=== PATIENT | male | born 1980 | race Caucasian/White ===

== ENCOUNTER 2016-10-30 11:16 | Observation (INO) ==
--- NOTE | 2016-10-30 11:45 | Emergency Department Note ---
Disposition Clinical Impression: Uncontrolled diabetes mellitus Qualifiers: Diabetes mellitus type: type 1 Diabetes mellitus complication status: with ketoacidosis Diabetes mellitus complication detail: without coma Qualified Code( s): E10.10 - Type 1 diabetes mellitus with ketoacidosis without coma Disposition: Admitted As Inpatient Condition: Good Referrals: Jessica Casey FIXED INCOME PORTFOLIO MANAGER [Advanced Practice Nurse] - Forms: ED Satisfaction Letter Time of Disposition: 13:03 Chest Pain HPI - General Chief Complaint: ED Chest Pain Stated Complaint: Chest Pain Time Seen by Provider: 10/30/16 11:18 Source: patient Limitations: no limitations Vital Signs Reviewed: Yes Nursing Notes Reviewed: Yes - History of Present Illness HPI Narrative: 36 year old male with HX of intermittment chest pain for over one week and woek up this moring with increased midsternal chest pressure assocaited iwth nausea, shortness of breath, and diaphoresis. Risk factors include: DM, HTN, (+) familly HX, hypercholesteremia. (-) smoker. Patient states he has a stress test and echo scheduled next month. No history of CAD or previous ID/stroke. Patinet states that he now has dyspnea at rest but on the monitors he is 100% on RA. Patinet states the midsternal chest pressure radiates into this arm/neck/face. Severity scale (1-10): 5 - Related Data Home Medications Medication Instructions Recorded Confirmed Allopurinol [Zyloprim 100 MG] 100 mg PO DAILY 10/30/16 10/30/16 Amlodipine Besylate/Benazepril 1 cap PO DAILY 10/30/16 10/30/16 [Lotrel 10-20 mg Capsule] Ascorbate Calcium [Vitamin C] 500 mg PO DAILY 10/30/16 10/30/16 Cholecalciferol (D-3) [Vitamin D] 2,000 unit PO DAILY 10/30/16 10/30/16 Gabapentin [Neurontin] 300 mg PO HS 10/30/16 10/30/16 Insulin Glargine,Hum.rec.anlog 22 units SQ HS 10/30/16 10/30/16 [Joanne Hurst] Insulin LISPRO [Humalog Kwikpen 0 unit SQ TID MDD PER SLIDING SCALE 10/30/16 U-100] Nitroglycerin [Nitrostat] 0.4 mg SL AD PRN 10/30/16 10/30/16 [place]-3/Dha/Epa/Fish Oil [Fish Oil 2,000 mg PO BID 10/30/16 10/30/16 1,000 mg Softgel] Simvastatin [Zocor] 20 mg PO HS 10/30/16 10/30/16 Allergies Allergy/AdvReac Type Severity Reaction Status Date / Time NSAIDS (Non-Steroidal AdvReac See Verified 10/30/16 11:19 Anti-Inflamma Comments Constitutional: Denies: fever, chills, weakness, weight change Eyes: Denies: eye pain, eye discharge, vision change ENT ED: Denies: ear pain, throat pain, dental pain, hearing loss, epistaxis, congestion, dysphagia Cardiovascular: Reports: chest pain, palpitations, dyspnea on exertion. Denies : edema, syncope Respiratory: Denies: cough, dyspnea, wheezes, hemoptysis, stridor Gastrointestinal: Denies: abdominal pain, nausea, vomiting, diarrhea, constipation, hematemesis, melena, hematochezia Genitourinary: Denies: urgency, dysuria, frequency, hematuria Musculoskeletal: Denies: back pain, neck pain, arthralgia, myalgia Integumentary: Denies: rash, abrasion, lesions Neurological: Denies: headache, weakness, numbness, paresthesias, confusion, abnormal gait, vertigo Psychiatric: Denies: anxiety, depression, suicidal thoughts, homicidal thoughts , auditory hallucinations, visual hallucinations Endocrine: Denies: fatigue Hematological/Lymphatic: Denies: easy bleeding, easy bruising Allergic/Immunologic: Denies: facial swelling, urticaria Chest Pain PMH - Past Medical History Medical history: Reports: arthritis, diabetes, hyperlipidemia, renal disease Psychiatric history: Reports: depression - Social History Smoking Status: Former smoker Alcohol use: Reports: occasionally Drug use: Reports: none Physical Exam - General Limitations: no limitations General appearance: alert, other (poor hygiene) - Head Head exam: atraumatic, normocephalic, normal inspection - Eye Eye exam: Present: normal appearance, PERRL, EOMI - Expanded Eye Exam Pupils: Left: reactive - ENT ENT exam: normal exam, normal oropharynx, mucous membranes moist - Expanded ENT Exam External ear exam: Present: normal external inspection Mouth exam: Present: normal external inspection Teeth exam: Present: normal inspection Throat exam: Present: normal inspection - Neck Neck exam: Present: normal inspection, full ROM, trachea midline - Chest Chest inspection: Present: normal inspection, symmetric chest wall rise - Respiratory Respiratory exam: Present: normal lung sounds bilaterally - Cardiovascular Cardiovascular exam: Present: normal rhythm, tachycardia, normal heart sounds - Abdominal Exam Abdominal exam: Present: soft, Non-Tender. Absent: tenderness, distention, guarding, rebound, rigidity - Extremities Exam Extremities exam: Present: normal inspection, full ROM. Absent: tenderness, pedal edema - Expanded Upper Extremity Exam Shoulder exam: Present: normal inspection, full ROM Arm exam: Present: normal inspection, full ROM Elbow exam: Present: normal inspection, full ROM Forearm/Wrist exam: Present: normal inspection, full ROM Hand exam: Present: normal inspection, full ROM Vascular exam: Normal: capillary refill, radial pulse - Expanded Lower Extremity Exam Hip/Pelvis exam: Present: normal inspection, full ROM Upper leg exam: Present: normal inspection, full ROM Knee exam: Present: normal inspection, full ROM Lower leg exam: Present: normal inspection, full ROM Ankle exam: Present: normal inspection, full ROM Foot/toe exam: Present: normal inspection, full ROM Neurovascular/Tendon exam: Absent: motor deficit, sensory deficit, tendon deficit - Back Exam Back exam: Present: normal inspection, full ROM. Absent: tenderness - Neurological Exam Neurological exam: Present: alert, oriented X3 - Expanded Neurological Exam Patient oriented to: Present: person, place, time Coma Scale Eye Opening: Spontaneous Coma Scale Motor Response: Obeys Commands Coma Scale Verbal Response: Oriented Coma Scale Total: 15 - Psychiatric Psychiatric exam: Present: normal affect, normal mood - Skin Skin exam: Present: warm, dry, intact, normal color Course Course Narrative: we will do a chest pain workup on elan. He states he took two nitro at home and is gave him relief. Patient does not PERC out, and he has Wells criteria of 1. WE will do a D-dimer to r/o PE. Labetolol for management of his HTN. - Reevaluation(s) Reevaluation #1: updated patient on results. Elan is agreeable to admission. Time: 12:30 - Consultations Consultation #1: discused case with Dr. Tim and she accepts patient to service Time: 13:02 Vital Signs Temperature 98.7 F 10/30/16 11:19 Pulse Rate 105 10/30/16 11:19 Respiratory Rate 18 10/30/16 11:19 Blood Pressure 174/123 10/30/16 11:19 O2 Sat by Pulse Oximetry 100 10/30/16 11:19 Temperature 98.7 F 10/30/16 11:19 Pulse Rate 92 10/30/16 12:59 Respiratory Rate 16 10/30/16 12:59 Blood Pressure 106/89 10/30/16 12:59 O2 Sat by Pulse Oximetry 100 10/30/16 12:59 Oxygen Delivery Oxygen Delivery Room Air Chest Pain - Lab Data Result diagrams: 10/30/16 11:46 10/30/16 11:46 Lab Results 10/30/16 10/30/16 10/30/16 Range/Units 11:46 11:46 11:46 WBC 7.8 (4.3-11.1) K/mcL RBC 5.21 (4.19-5.50) M/mcL Hgb 14.3 (12.9-16.9) g/dL Hct 39.9 (37.5-50.1) % MCV 76.6 L (83.0-100.0) fL MCH 27.4 L (28.0-33.3) pg MCHC 35.8 H (31.6-35.5) g/dL RDW 12.5 (11.5-14.5) % Plt Count 224 (140-400) K/mcL MPV 10.5 (9.4-12.4) fL Immature Gran % 0.1 (0-4) % Seg Neutrophils % 73.0 % Lymphocytes % 21.4 % Monocytes % 4.6 % Eosinophils % 0.0 % Basophils % 0.9 % Neutrophils # 5.7 (1.6-8.9) K/mcL Lymphocytes # 1.7 (0.6-4.6) K/mcL Monocytes # 0.4 (0.0-1.3) K/mcL Eosinophils # 0.0 (0.0-0.6) K/mcL Basophils # 0.1 (0.0-0.2) K/mcL PT 11.1 (9.4-12.1) Seconds INR 1.0 APTT 30.3 (26.0-36.0) Seconds D-Dimer < 215 (0-500) ng/mLFEU VBG pH (7.32-7.42) pH Units VBG pCO2 (41-51) mmHg VBG pO2 (25-40) mmHg VBG HCO3 (21-27) mEq/L Sodium 128 L (136-145) mEq/L Potassium 4.6 H (3.5-4.5) mEq/L Chloride 88 L (98-109) mEq/L Carbon Dioxide 25 (19-29) mEq/L BUN 34 H (8-26) mg/dL Creatinine 3.22 H (0.72-1.25) mg/dL Est GFR ( Amer) 27 L (> 60) Est GFR (Non-Af Amer) 22 L (> 60) BUN/Creatinine Ratio 11 (6-26) Glucose 533 H* (70-99) mg/dL POC Glucose (58-89) Calculated Osmolality 298 (280-300) Calcium 10.0 (8.6-10.8) mg/dL Troponin I (0-0.03) ng/mL Beta-Hydroxybutyric Acd (0.02-0.27) mmol/L 10/30/16 10/30/16 10/30/16 Range/Units 11:46 12:36 12:36 WBC (4.3-11.1) K/mcL RBC (4.19-5.50) M/mcL Hgb (12.9-16.9) g/dL Hct (37.5-50.1) % MCV (83.0-100.0) fL MCH (28.0-33.3) pg MCHC (31.6-35.5) g/dL RDW (11.5-14.5) % Plt Count (140-400) K/mcL MPV (9.4-12.4) fL Immature Gran % (0-4) % Seg Neutrophils % % Lymphocytes % % Monocytes % % Eosinophils % % Basophils % % Neutrophils # (1.6-8.9) K/mcL Lymphocytes # (0.6-4.6) K/mcL Monocytes # (0.0-1.3) K/mcL Eosinophils # (0.0-0.6) K/mcL Basophils # (0.0-0.2) K/mcL PT (9.4-12.1) Seconds INR APTT (26.0-36.0) Seconds D-Dimer (0-500) ng/mLFEU VBG pH 7.42 (7.32-7.42) pH Units VBG pCO2 49 (41-51) mmHg VBG pO2 19 L (25-40) mmHg VBG HCO3 31.8 H (21-27) mEq/L Sodium (136-145) mEq/L Potassium (3.5-4.5) mEq/L Chloride (98-109) mEq/L Carbon Dioxide (19-29) mEq/L BUN (8-26) mg/dL Creatinine (0.72-1.25) mg/dL Est GFR ( Amer) (> 60) Est GFR (Non-Af Amer) (> 60) BUN/Creatinine Ratio (6-26) Glucose (70-99) mg/dL POC Glucose (58-89) Calculated Osmolality (280-300) Calcium (8.6-10.8) mg/dL Troponin I 0.00 (0-0.03) ng/mL Beta-Hydroxybutyric Acd 1.61 H (0.02-0.27) mmol/L 10/30/16 Range/Units 12:58 WBC (4.3-11.1) K/mcL RBC (4.19-5.50) M/mcL Hgb (12.9-16.9) g/dL Hct (37.5-50.1) % MCV (83.0-100.0) fL MCH (28.0-33.3) pg MCHC (31.6-35.5) g/dL RDW (11.5-14.5) % Plt Count (140-400) K/mcL MPV (9.4-12.4) fL Immature Gran % (0-4) % Seg Neutrophils % % Lymphocytes % % Monocytes % % Eosinophils % % Basophils % % Neutrophils # (1.6-8.9) K/mcL Lymphocytes # (0.6-4.6) K/mcL Monocytes # (0.0-1.3) K/mcL Eosinophils # (0.0-0.6) K/mcL Basophils # (0.0-0.2) K/mcL PT (9.4-12.1) Seconds INR APTT (26.0-36.0) Seconds D-Dimer (0-500) ng/mLFEU VBG pH (7.32-7.42) pH Units VBG pCO2 (41-51) mmHg VBG pO2 (25-40) mmHg VBG HCO3 (21-27) mEq/L Sodium (136-145) mEq/L Potassium (3.5-4.5) mEq/L Chloride (98-109) mEq/L Carbon Dioxide (19-29) mEq/L BUN (8-26) mg/dL Creatinine (0.72-1.25) mg/dL Est GFR ( Amer) (> 60) Est GFR (Non-Af Amer) (> 60) BUN/Creatinine Ratio (6-26) Glucose (70-99) mg/dL POC Glucose 387 H (58-89) Calculated Osmolality (280-300) Calcium (8.6-10.8) mg/dL Troponin I (0-0.03) ng/mL Beta-Hydroxybutyric Acd (0.02-0.27) mmol/L - EKG Data EKG attestation: Yes I reviewed and interpreted this EKG. EKG results narrative: sinus tachy with rate of 102. NO STEMI. normal intervals. no change from . 1127 Heart Score - Score History: Slightly Suspicious EKG: Normal Age: Less than 45 Risk Factors: Equal/Greater than 3 risk factor or history of atherosclerotic disease Troponin: Less than normal limit HEART Score Total: 2 Attestation Statement - Attestation Attestation: I examined this patient and my medical decision-making was reviewed with the POWER PRESS OPERATOR/PA/Advanced Practice Nurse/Resident Physician. I agree with the documented findings, disposition and treatment plan as described except to the extent set forth below. Patient to the emergency department with a chief complaint chest pain. Intermittent substernal episodes for a few weeks. He set up for outpatient tests but the pain was worse today. Patient is a type I diabetic with chronic renal failure. On examination he is in no distress. Heart regular lungs clear. Plan. Cardiac workup appears negative. He is hyperglycemic. Admitted to medicine for further cardiac workup.0
[2016-10-30] MEDS ORDERED: Aspirin 81 MG TAB.CHEW PO ONE (11:46)
[2016-10-30] MEDS ORDERED: *HR* Labetalol 20 MG/4 ML SYRINGE IVP ONE (11:50)
[2016-10-30 11:55] LABS: Basophils # 0.1 K/mcL (0.0-0.2); Basophils % 0.9 %; Hematocrit 39.9 % (37.5-50.1); Hemoglobin 14.3 g/dL (12.9-16.9); Immature Granulocytes % 0.1 % (0-4); Lymphocytes # 1.7 K/mcL (0.6-4.6); Lymphocytes % 21.4 %; Mean Corpuscular HGB Conc 35.8 g/dL (31.6-35.5); Mean Corpuscular Hemoglobin 27.4 pg (28.0-33.3); Mean Corpuscular Volume 76.6 fL (83.0-100.0); Mean Platelet Volume 10.5 fL (9.4-12.4); Monocytes # 0.4 K/mcL (0.0-1.3); Monocytes % 4.6 %; Neutrophils # 5.7 K/mcL (1.6-8.9); Platelet Count 224 K/mcL (140-400); Red Blood Count 5.21 M/mcL (4.19-5.50); Red Cell Distribution Width 12.5 % (11.5-14.5)
[2016-10-30 12:02] LABS: Prothrombin Time 11.1 Seconds (9.4-12.1)
[2016-10-30 12:05] LABS: Activated Partial Thrombo Time 30.3 Seconds (26.0-36.0)
[2016-10-30 12:08] LABS: Potassium 4.6 mEq/L (3.5-4.5)
[2016-10-30] MEDS ORDERED: Insulin Human Regular 10 UNIT in 0.9 % Sodium Chloride 10 ML IV ONE (12:18)
[2016-10-30] MEDS ORDERED: 0.9 % Sodium Chloride 1,000 ML IVC ONE (12:18)
[2016-10-30 12:44] LABS: VBG HCO3 31.8 mEq/L (21-27); VBG PH 7.42 pH Units (7.32-7.42)
[2016-10-30 12:47] LABS: D-Dimer < 215 ng/mLFEU (0-500)
--- NOTE | 2016-10-30 16:42 | Internal Med History&Physical ---
Date of Encounter: 10/30/16 Time of Encounter: 16:38 Assessment and Plan (1) Chest pain Current visit: Yes Status: Acute seems chronic but says that is worse today. he has been scheduled for stress test and ECHO for next week at [facility]. he has uncontrolled DM, HLD , he was given NTG last month by his PCP which he says helped with his chest pain. EKG does not show any ischemic changes trop neg X1, will trend. will order ECHO. will order nuclear stress test, he cannot exercise due to arthritis he says and he uses a cane. Qualifiers: Ischemic chest pain type: unspecified angina pectoris type Qualified Code(s ): I20.9 - Angina pectoris, unspecified (2) CKD (chronic kidney disease) Current visit: Yes Status: Acute last creat of 2.75 on 2015 which has bumped up. renal fxn may have worsened from his uncontrolled DM. will continue IVF for now and see if that will help, andrei order renal US. he says he sees a kidney doctor outside [place] have not seen him for a while. Qualifiers: Chronic kidney disease stage: stage 4 (severe) Qualified Code(s): N18.4 - Chronic kidney disease, stage 4 (severe) (3) Uncontrolled diabetes mellitus Current visit: Yes Status: Acute not in DKA now. will start on levemir and nutritional plus correctional insulin sliding scale, check a1c. Qualifiers: Diabetes mellitus type: type 1 Diabetes mellitus complication status: with ketoacidosis Diabetes mellitus complication detail: without coma Qualified Code(s): E10.10 - Type 1 diabetes mellitus with ketoacidosis without coma (4) HTN (hypertension) Current visit: Yes Status: Acute BP elevated on presentation. was given one dose of labetalol at ED, which has brought down the BP will add low dose metoprolol for now. continue to monitor Qualifiers: Hypertension type: essential hypertension Qualified Code(s): I10 - Essential (primary) hypertension Internal Medicine - H&P: HPI Chief complaint: chest pain Admitted From: Home Plans for Post Hospital Care: Home History of present illness: Mr. Alvarez is a 36 year old male with HX of diabetes, hyperlipidemia and stage IV chronic kidney presented to ED with intermittment chest pain for over one week and woke up this moring with increased midsternal chest pressure assocaited iwth nausea, shortness of breath, and diaphoresis. Risk factors include: DM, HTN , (+) familly HX, hypercholesteremia. (-) smoker. Patient states he has a stress test and echo scheduled next month. No history of CAD or previous DC/ stroke. HE denies any CHRISTIANSON, fever, cough or leg swelling. AT ED, he was noted to have blood sugar of >500 with anion gap. HE is being admitted for evaluation of chest pain and hyperglycemia(DKA has resolved by the time of my assesment) Past Med Surg Social Fam HX - Past Medical History Medical history: arthritis, diabetes, hyperlipidemia, renal disease Psychiatric history: depression - Social History Smoking Status: Former smoker Smokeless Tobacco Status: Yes Alcohol use: occasionally Drug use: none - Family History Grandmother Hx Family Cancer: Yes Mother Daughter Hx Family Genitourinary Disorders: Yes Internal Medicine - H&P: Meds Allopurinol [Zyloprim 100 MG] 100 mg PO DAILY 10/30/16 [History] Amlodipine Besylate/Benazepril [Lotrel 10-20 mg Capsule] 1 cap PO DAILY [History] Ascorbate Calcium [Vitamin C] 500 mg PO DAILY 10/30/16 [History] Cholecalciferol (D-3) [Vitamin D] 2,000 unit PO DAILY 10/30/16 [History] Gabapentin [Neurontin] 300 mg PO HS 10/30/16 [History] Insulin Glargine,Hum.rec.anlog [Toujeo Solostar] 22 units SQ HS 10/30/16 [ History] Insulin LISPRO [Humalog Kwikpen U-100] 0 unit SQ TID MDD PER SLIDING SCALE 10/30 [History] Nitroglycerin [Nitrostat] 0.4 mg SL AD PRN 10/30/16 [History] [place]-3/Dha/Epa/Fish Oil [Fish Oil 1,000 mg Softgel] 2,000 mg PO BID 10/30/16 [ History] Simvastatin [Zocor] 20 mg PO HS 10/30/16 [History] Allergies NSAIDS (Non-Steroidal Anti-Inflamma Adverse Reaction (Verified 10/30/16 11:19) See Comments All Systems PM: A 10-system review of systems was performed and is negative for pertinent findings except as documented above in the HPI. - Constitutional Vitals: Temp Pulse Resp BP Pulse Ox 98.7 F 96 16 115/77 96 10/30/16 11:19 10/30/16 15:04 10/30/16 16:05 10/30/16 16:05 10/30/16 15:04 General appearance: Present: A&O X 3, no acute distress Exam: - Head Head exam: atraumatic, normocephalic, normal inspection - Eye Eye exam: Present: normal appearance, PERRL, EOMI - ENT ENT exam: normal exam, normal oropharynx, mucous membranes moist - Neck Neck exam: Present: normal inspection, full ROM, trachea midline - Respiratory Respiratory exam: Present: normal lung sounds bilaterally - Cardiovascular Cardiovascular exam: Present: regular rate, normal rhythm, normal heart sounds - Abdominal Exam Abdominal exam: Present: soft, Non-Tender. Absent: tenderness, distention, guarding, rebound, rigidity - Extremities Exam Extremities exam: Present: normal inspection, full ROM. Absent: tenderness, pedal edema - Back Exam Back exam: Present: normal inspection, full ROM. Absent: tenderness - Neurological Exam Neurological exam: Present: alert, oriented X3, CN II-XII intact - Psychiatric Psychiatric exam: Present: normal affect, normal mood Internal Med - H&P Results - Labs CBC & Chem 7: 10/30/16 11:46 10/30/16 11:46
[2016-10-30] MEDS ORDERED: Naloxone 0.4 MG/ML INJ IVP PRN (16:50)
[2016-10-30] MEDS ORDERED: *HR* Dextrose 50 % in Water (Syg) 50 ML SYRINGE IVP PRN (16:52)
[2016-10-30] MEDS ORDERED: D5% in Water 1,000 ML IVC PRN (16:52)
[2016-10-30] MEDS ORDERED: Dextrose Gel 15 GM PO PRN ×2 (16:52)
[2016-10-30] MEDS ORDERED: Nitroglycerin 0.4 MG TAB.SUBL SL PRN (16:54)
[2016-10-30] MEDS: Insulin LISPRO 300 UNITS/3 ML VIAL SQ SCH ×2 (17:39→17:40)
[2016-10-30] MEDS: 0.9 % Sodium Chloride 1,000 ML IVC SCH (17:39)
[2016-10-30] MEDS ORDERED: Insulin DETEMIR 100 UNIT/ML X5UNITS SQ SCH (21:00)
[2016-10-30] MEDS ORDERED: Insulin LISPRO 300 UNITS/3 ML VIAL SQ SCH (21:00)
[2016-10-30] MEDS ORDERED: Gabapentin 300 MG CAPSULE PO SCH (21:00)
[2016-10-31 01:17] LABS: Basophils # 0.1 K/mcL (0.0-0.2); Basophils % 0.8 %
[2016-10-31 01:18] LABS: Hemoglobin 11.7 g/dL (12.9-16.9); Immature Granulocytes % 0.5 % (0-4); Lymphocytes # 3.3 K/mcL (0.6-4.6); Lymphocytes % 38.4 %; Mean Corpuscular HGB Conc 35.5 g/dL (31.6-35.5); Mean Corpuscular Hemoglobin 27.8 pg (28.0-33.3); Mean Corpuscular Volume 78.4 fL (83.0-100.0); Mean Platelet Volume 10.5 fL (9.4-12.4); Monocytes # 0.6 K/mcL (0.0-1.3); Monocytes % 7.2 %; Neutrophils # 4.6 K/mcL (1.6-8.9); Platelet Count 200 K/mcL (140-400); Red Blood Count 4.21 M/mcL (4.19-5.50); Red Cell Distribution Width 12.6 % (11.5-14.5); Segmented Neutrophils % 53.1 %
[2016-10-31 01:35] LABS: Chol/HDL Ratio 6.1 (0-4.9); Magnesium 1.7 mg/dL (1.6-2.6); Phosphorous 5.8 mg/dL (2.3-4.7); Potassium 3.8 mEq/L (3.5-4.5)
[2016-10-31] MEDS: 0.9 % Sodium Chloride 1,000 ML IVC SCH (04:16)
[2016-10-31] MEDS ORDERED: *HR* Enoxaparin 30 MG/0.3 ML SYRINGE SQ SCH (06:00)
--- NOTE | 2016-10-31 06:50 | Electrocardiograph Report ---
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
[2016-10-31] MEDS ORDERED: Regadenoson 0.4 MG/5 ML SYRINGE IVP ONE (07:11)
[2016-10-31] MEDS ORDERED: amLODIPine 5 MG TABLET PO SCH (09:00)
[2016-10-31] MEDS ORDERED: Lisinopril 20 MG TABLET PO SCH (09:00)
[2016-10-31] MEDS: Insulin LISPRO 300 UNITS/3 ML VIAL SQ SCH ×4 (10:28→13:05)
--- NOTE | 2016-10-31 11:42 | Nuclear Medicine Stress Report ---
Regadenoson Nuclear Stress Name: Rhett Alvarez Date of Study: 10/31/2016 Date: 1980 Ht: 75.0 in Medical Record#: [id number] Age: 36 Wt: 149.0 lb Gender: Male Order #: [id number] Location: [facility] Room: [facility] Supervising Provider: Cherelle Lindsay CNP Reading Physician: Nikhil Brennan DO, ALYSSA BELL FASNC Ordering Physician: Gordon Aguero DO Primary Care Physician: Gaby Abdul MD Information Resources Director: Jay Jay Valdovinos Indications: Chest Pain Impression: Pharmacologic stress ECG is negative for ischemia at level of heart rate achieved. Chest discomfort reported during stress. This is a nonspecific finding with Lexiscan. Gated EF = 58%. Perfusion imaging was negative for ischemia or infarct. History: Hypertension Diabetes Hypercholesteremia Stress Test Summary: Stress Test Type: Pharmacologic Regadenoson 0.4mg/5ml given IV Baseline Information: Initial Heart Rate: 90 Blood Pressure: 108/72 Stress Information: Stress Time: 4 min 00 sec Test Terminated Due to (primary): As per protocol Maximum Blood Pressure: 100/68 Maximum Heart Rate: 98 Percent Maximum Heart Rate Achieved: 53 Double Product: 9800 METS Reached: 1 Symptoms: Chest pressure Nuclear Summary: SPECT myocardial perfusion imaging using Tc99m Sestamibi given intravenously was performed at rest and following cardiac stress testing. The resting images were obtained following initial dose of 10.8 mCi. Following stress an additional dose of 33 mCi was given at peak exercise or 30 seconds post regadenoson infusion. Medication Given: Time Medication Dose Units Route Findings: Stress Note * Resting ECG demonstrated normal sinus rhythm. * No baseline arrhythmias were noted. * Pharmacologic stress ECG is negative for ischemia at level of heart rate achieved. * No arrhythmias were noted during stress. * Chest discomfort reported during stress. This is a nonspecific finding with Lexiscan. Hemodynamic responses * Normal hemodynamic responses to pharmacologic stress. Study Quality * Study quality is average. Gated EF % * Gated EF = 58%. Left Ventricle * The left ventricle is not dilated. * LVEDV = 83 mL. NORMALS * Normal wall motion. * Normal segmental perfusion in stress. Apical Perfusion Rest * The apical septal segment shows a mild reduction in perfusion. This resolves with stress imaging, which is consistent with artifact. TID * No evidence of transient ischemic dilatation. TID ratio * TID ratio = 1.12. Lung Uptake * There is no evidence of increase lung uptake. Updated by Nikhil Brennan DO, RAY, ALYSSA, MORENO on 10/31/2016 11:36:37 AM electronically signed on 10/31/2016 11:37:17 AM with status of Final
[2016-10-31 16:17] VITALS: BP 123/79
--- NOTE | 2016-10-31 16:18 | Discharge Summary ---
Date of Encounter: 10/31/16 Time of Encounter: 16:15 - Discharge Diagnosis (1) Chest pain Priority: Primary Status: Acute Qualifiers: Ischemic chest pain type: stable angina pectoris Qualified Code(s): I20.8 - Other forms of angina pectoris (2) CKD (chronic kidney disease) Priority: Secondary Status: Chronic Qualifiers: Chronic kidney disease stage: stage 4 (severe) Qualified Code(s): N18.4 - Chronic kidney disease, stage 4 (severe) (3) HTN (hypertension) Priority: Secondary Status: Chronic Qualifiers: Hypertension type: renovascular hypertension Qualified Code(s): I15.0 - Renovascular hypertension (4) Diabetes Priority: Secondary Status: Chronic Qualifiers: Diabetes mellitus type: type 1 Diabetes mellitus complication detail: with diabetic retinopathy Diabetic retinopathy severity: with unspecified retinopathy severity Diabetes mellitus macular edema: without macular edema Laterality: bilateral Qualified Code(s): E10.319 - Type 1 diabetes mellitus with unspecified diabetic retinopathy without macular edema (5) Diabetic nephropathy associated with type 1 diabetes mellitus Priority: Secondary Status: Chronic (6) Diabetic neuropathy associated with type 1 diabetes mellitus Priority: Secondary Status: Chronic Qualifiers: Diabetes mellitus complication detail: diabetic polyneuropathy Qualified Code(s): E10.42 - Type 1 diabetes mellitus with diabetic polyneuropathy (7) 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 Priority: Secondary Status: Chronic (8) Diabetic nephropathy associated with type 1 diabetes mellitus Priority: Secondary Status: Chronic - Discharge Medications Prescriptions: Lisinopril [Zestril] 20 mg PO DAILY #30 tablet Metoprolol [Lopressor] 12.5 mg PO BID #60 tablet Home Medications: Allopurinol [Zyloprim 100 MG] 100 mg PO DAILY 10/30/16 [History] Amlodipine Besylate/Benazepril [Lotrel 10-20 mg Capsule] 1 cap PO DAILY [History] Ascorbate Calcium [Vitamin C] 500 mg PO DAILY 10/30/16 [History] Cholecalciferol (D-3) [Vitamin D] 2,000 unit PO DAILY 10/30/16 [History] Gabapentin [Neurontin] 300 mg PO HS 10/30/16 [History] Insulin Glargine,Hum.rec.anlog [Joanne Hurst] 22 units SQ HS 10/30/16 [ History] Insulin LISPRO [Humalog Kwikpen U-100] 0 unit SQ TID MDD PER SLIDING SCALE 10/30 [History] Nitroglycerin [Nitrostat] 0.4 mg SL AD PRN 10/30/16 [History] [place]-3/Dha/Epa/Fish Oil [Fish Oil 1,000 mg Softgel] 2,000 mg PO BID 10/30/16 [ History] Simvastatin [Zocor] 20 mg PO HS 10/30/16 [History] Lisinopril [Zestril] 20 mg PO DAILY #30 tablet 10/31/16 [Rx] Metoprolol [Lopressor] 12.5 mg PO BID #60 tablet 10/31/16 [Rx] Nitroglycerin 0.4 mg SL Q5MIN PRN #0 tab.subl 10/31/16 [Rx] Allergies/Adverse Reactions: Allergies NSAIDS (Non-Steroidal Anti-Inflamma Adverse Reaction (Verified 10/30/16 11:19) See Comments Procedures/tests Complete & Pending: Procedures Performed prior 72 hours Category Date Time Status NM shelli perf SPECT multi [NM] Routine Exams 10/30/16 16:53 Taken SP pharm nuclear stress Routine Y 10/31/16 07:00 Completed Date of admission: 10/30/16 16:05 Primary care physician: Gaby Abdul MD Consults: 10/31/16 11:46 Consult to Power Checker [CONS] Routine Comment: 10/31/16 11:48 Consult to Licensed Massage Therapist [CONS] Routine Reason for SW Consult: unsure of home conditions . patient's apperance is deshelved and unkept, and fould odor of cat urine with multiple open area to bilater feet. uncontrolled DM sugar was in 500 on admission Discharging clinician: Gordon Aguero Anticipated date of discharge: 10/31/16 - Patient Status Disposition: Home, Self-Care Condition: Fair Functional capacity at discharge: uses cane/walker Overall status at discharge: patient is progressing back to baseline - Discharge Instructions Follow Up With: Gaby Abdul MD [Primary Care Provider] - Additional Instructions: Please follow up with cardiology as arranged. - Diet and Activity Activity: resume usual activities as tolerated Diet: diabetic diet Hospital course: Mr. Alvarez is a 36 year old male with hx of type 1 diabetes mellitus presented to ED with chest pain. His initial troponin was negative and he was placed in observation in [place]. Mr. Alvarez was placed on med tele. He had negative serial troponin. He continued having intermittent atypical chest pain. Stress test was done and was negative for ischemia. Discussed with cardiology to arrange outpatient follow up. Pt currently is resting comfortably. He is afebrile with stable vitals. His glucose was markedly elevated on admission and improved with insulin treatment. asthma educator was consulted and did see him before discharge. It was discussed with him the need to watch his diet and to follow up with cardiology as he is high risk for cardiovascular issues. - Time Spent with Patient Total time spent providing and/or coordinating discharge services: 41min - Constitutional Vitals: Temp Pulse Resp BP Pulse Ox 98.6 F 85 17 116/82 96 10/31/16 11:00 10/31/16 11:00 10/31/16 11:00 10/31/16 11:00 10/31/16 11:00 General appearance: Present: A&O X 3, answers questions appropriately - Head Head exam: Present: normocephalic - Eye Eye exam: Present: conjuntiva pink - ENT ENT exam: Present: mucous membranes dry - Respiratory Respiratory exam: Present: decreased breath sounds, CTAB - Cardiovascular Cardiovascular exam: Present: RRR. Absent: tachycardia - GI/Abdominal GI/Abdominal exam: Present: soft. Absent: tenderness - Extremities Exam Extremities exam: Present: warm - Neurological Exam Neurological exam: Present: alert, oriented X3 - Psychiatric Psychiatric exam: Present: normal affect, normal mood - Skin Skin exam: Present: warm. Absent: rash
== END 2016-10-31 20:38 | disposition home or self-care (01) ==
LOC: 2NENU 11:16 → EMEROO 11:16 → 2NENU 16:15
PROVIDERS: ADMIT Internal Medicine Endocrinology, Diabetes & Metabolism; ATTEND Internal Medicine

== ENCOUNTER 2020-08-01 22:04 | Inpatient (IN) ==
[2020-08-01] MEDS ORDERED: Aspirin 81 MG TAB.CHEW PO ONE (23:14)
[2020-08-02 00:23] LABS: INR 1.1; Prothrombin Time 13.2 Seconds (9.4-12.1)
[2020-08-02 00:25] LABS: Activated Partial Thrombo Time 41.7 Seconds (26.0-36.0)
[2020-08-02 00:26] LABS: Basophils % 1.2 %; Hematocrit 30.5 % (37.5-50.1); Hemoglobin 9.8 g/dL (12.9-16.9); Immature Granulocytes % 0.4 % (0-4); Lymphocytes # 0.7 K/mcL (0.6-4.6); Lymphocytes % 26.2 %; Mean Corpuscular HGB Conc 32.1 g/dL (31.6-35.5); Mean Corpuscular Hemoglobin 29.3 pg (28.0-33.3); Mean Platelet Volume 10.7 fL (9.4-12.4); Monocytes # 0.5 K/mcL (0.0-1.3); Monocytes % 17.6 %; Neutrophils # 1.4 K/mcL (1.6-8.9); Platelet Count 145 K/mcL (140-400); Red Blood Count 3.35 M/mcL (4.19-5.50); Red Cell Distribution Width 14.5 % (11.5-14.5); Segmented Neutrophils % 54.6 %; White Blood Count 2.6 K/mcL (4.3-11.1)
[2020-08-02 00:40] LABS: Albumin 3.1 g/dL (3.5-5.7); Albumin/Globulin Ratio 1.3 (1.1-2.2); Bilirubin,Indirect 0.3 mg/dL (0.0-1.0); Bilirubin,Total 0.3 mg/dL (0.3-1.0); Calcium 8.3 mg/dL (8.6-10.3); Globulin 2.4 g/dL (2.4-3.5); Potassium 4.7 mEq/L (3.5-5.1); Total Protein 5.5 g/dL (6.4-8.9)
[2020-08-02 00:52] LABS: Troponin I 0.06 ng/mL (< 0.04)
[2020-08-02] MEDS ORDERED: Azithromycin 500 MG in 0.9 % Sodium Chloride 250 ML IVPB ONE (01:39)
[2020-08-02] MEDS ORDERED: Naloxone 0.4 MG/ML INJ IVP PRN (02:09)
[2020-08-02] MEDS ORDERED: D5% in Water 1,000 ML IVC PRN (02:11)
[2020-08-02] MEDS ORDERED: Dextrose Gel 15 GM/37.5 ML TUBE PO PRN ×2 (02:11)
[2020-08-02] MEDS ORDERED: Nitroglycerin 0.4 MG TAB.SUBL SL ONE (05:13)
[2020-08-02] MEDS: Acetaminophen 325 MG TABLET PO PRN ×2 (05:45→14:48)
[2020-08-02 07:06] LABS: Calcium 8.5 mg/dL (8.6-10.3); Potassium 4.9 mEq/L (3.5-5.1); Troponin I 0.05 ng/mL (< 0.04)
[2020-08-02] MEDS: Insulin LISPRO 300 UNITS/3 ML VIAL SUBQ SCH ×3 (08:45→16:47)
[2020-08-02 11:01] LABS: Hepatitis B Surface Antibody < 3.10 mIU/mL
[2020-08-02 11:13] LABS: Hepatitis B Surface Antigen Nonreactive (Nonreactive)
[2020-08-02] MEDS: Nitroglycerin 0.4 MG TAB.SUBL SL PRN (14:48)
[2020-08-02] MEDS ORDERED: Insulin LISPRO 300 UNITS/3 ML VIAL SUBQ SCH (21:00)
[2020-08-02] MEDS ORDERED: Insulin DETEMIR 100 UNIT/ML X5UNITS SUBQ SCH (21:00)
[2020-08-03 07:32] LABS: Basophils % 0.5 %; Hematocrit 33.8 % (37.5-50.1); Hemoglobin 11.1 g/dL (12.9-16.9); Lymphocytes # 1.1 K/mcL (0.6-4.6); Lymphocytes % 30.3 %; Mean Corpuscular HGB Conc 32.8 g/dL (31.6-35.5); Mean Corpuscular Hemoglobin 29.1 pg (28.0-33.3); Mean Corpuscular Volume 88.7 fL (83.0-100.0); Mean Platelet Volume 10.4 fL (9.4-12.4); Monocytes # 0.4 K/mcL (0.0-1.3); Monocytes % 10.1 %; Neutrophils # 2.2 K/mcL (1.6-8.9); Platelet Count 150 K/mcL (140-400); Red Blood Count 3.81 M/mcL (4.19-5.50); Red Cell Distribution Width 14.2 % (11.5-14.5); Segmented Neutrophils % 59.1 %; White Blood Count 3.8 K/mcL (4.3-11.1)
[2020-08-03] MEDS: *HR* Dextrose 50 % in Water (Vial) 50 ML VIAL IVP PRN (07:49)
[2020-08-03 08:00] LABS: Calcium 8.7 mg/dL (8.6-10.3); Potassium 3.9 mEq/L (3.5-5.1)
[2020-08-03] MEDS ORDERED: 0.9 % Sodium Chloride 250 ML IVC PRN (08:13)
[2020-08-03] MEDS ORDERED: *HR* Heparin 10,000 UNIT/10 ML VIAL IV PRN (08:13)
[2020-08-03] MEDS: Insulin LISPRO 300 UNITS/3 ML VIAL SUBQ SCH ×3 (08:14→17:53)
[2020-08-03] MEDS ORDERED: 0.9 % Sodium Chloride 1,000 ML PRIME SCH (08:15)
[2020-08-03] MEDS: calcitrioL 0.25 MCG CAPSULE PO SCH (08:33)
[2020-08-03] MEDS: Cholecalciferol (D-3) 1,000 UNIT (25MCG) TABLET PO SCH (08:33)
[2020-08-03] MEDS: hydrALAZINE 25 MG TABLET PO SCH ×2 (08:33→20:03)
[2020-08-03] MEDS: Metoprolol XL (24 HR) Succ 25 MG TAB.ER.24H PO SCH ×2 (08:34→20:05)
[2020-08-03] MEDS: Isosorbide MONOnitrate (24 HR) 30 MG TAB.ER.24H PO SCH (08:34)
[2020-08-03] MEDS: Aspirin 81 MG TAB.CHEW PO SCH (08:35)
[2020-08-03] MEDS: (Zinc Acetate [Galzin] 50 MG) PO SCH ×3 (08:58→21:27)
[2020-08-03] MEDS ORDERED: Famotidine 20 MG TABLET PO SCH (09:00)
[2020-08-03] MEDS: Acetaminophen 325 MG TABLET PO PRN ×2 (15:59→23:50)
[2020-08-03] MEDS: Insulin DETEMIR 100 UNIT/ML X5UNITS SUBQ SCH (20:09)
[2020-08-03] MEDS ORDERED: *HR* Enoxaparin 40 MG/0.4 ML SYRINGE SQ SCH (21:00)
[2020-08-03] MEDS: *HR* Heparin 5,000 UNIT/ML VIAL SQ SCH (21:26)
[2020-08-03] MEDS: Nitroglycerin 0.4 MG TAB.SUBL SL PRN ×2 (23:06→23:12)
[2020-08-04 00:39] LABS: Basophils % 0.4 %; Hematocrit 24.8 % (37.5-50.1); Immature Granulocytes % 0.4 % (0-4); Lymphocytes # 0.4 K/mcL (0.6-4.6); Mean Corpuscular HGB Conc 33.9 g/dL (31.6-35.5); Mean Corpuscular Hemoglobin 30.3 pg (28.0-33.3); Mean Corpuscular Volume 89.5 fL (83.0-100.0); Mean Platelet Volume 10.5 fL (9.4-12.4); Monocytes # 0.4 K/mcL (0.0-1.3); Monocytes % 15.3 %; Neutrophils # 1.8 K/mcL (1.6-8.9); Platelet Count 111 K/mcL (140-400); Red Blood Count 2.77 M/mcL (4.19-5.50); Red Cell Distribution Width 13.8 % (11.5-14.5); Segmented Neutrophils % 67.9 %; White Blood Count 2.6 K/mcL (4.3-11.1)
[2020-08-04 00:46] LABS: Hemoglobin 8.4 g/dL (12.9-16.9)
[2020-08-04 00:58] LABS: Calcium 7.6 mg/dL (8.6-10.3); Potassium 4.2 mEq/L (3.5-5.1)
[2020-08-04] MEDS ORDERED: Acetaminophen IV 500 MG/50 ML BAG IVPB ONE (01:16)
[2020-08-04] MEDS: *HR* Heparin 5,000 UNIT/ML VIAL SQ SCH ×3 (05:18→20:54)
[2020-08-04] MEDS: Insulin LISPRO 300 UNITS/3 ML VIAL SUBQ SCH ×3 (08:09→16:56)
[2020-08-04] MEDS: Isosorbide MONOnitrate (24 HR) 30 MG TAB.ER.24H PO SCH (08:18)
[2020-08-04] MEDS: Metoprolol XL (24 HR) Succ 25 MG TAB.ER.24H PO SCH ×2 (08:18→19:35)
[2020-08-04] MEDS: Famotidine 20 MG TABLET PO SCH (08:18)
[2020-08-04] MEDS: Cholecalciferol (D-3) 1,000 UNIT (25MCG) TABLET PO SCH (08:18)
[2020-08-04] MEDS: calcitrioL 0.25 MCG CAPSULE PO SCH (08:18)
[2020-08-04] MEDS: Aspirin 81 MG TAB.CHEW PO SCH (08:19)
[2020-08-04] MEDS: hydrALAZINE 25 MG TABLET PO SCH ×2 (08:19→19:34)
[2020-08-04] MEDS: (Zinc Acetate [Galzin] 50 MG) PO SCH ×3 (08:28→19:45)
[2020-08-04] MEDS: Acetaminophen 325 MG TABLET PO PRN ×2 (13:42→19:36)
[2020-08-04] MEDS: Morphine Sulfate 2 MG/ML SYRINGE IVP PRN ×2 (15:40→19:36)
[2020-08-04 16:09] LABS: Basophils % 0.6 %; Hematocrit 27.5 % (37.5-50.1); Lymphocytes # 0.5 K/mcL (0.6-4.6); Lymphocytes % 30.7 %; Mean Corpuscular HGB Conc 32.7 g/dL (31.6-35.5); Mean Corpuscular Hemoglobin 29.5 pg (28.0-33.3); Mean Corpuscular Volume 90.2 fL (83.0-100.0); Mean Platelet Volume 10.6 fL (9.4-12.4); Monocytes # 0.3 K/mcL (0.0-1.3); Monocytes % 16.3 %; Neutrophils # 0.9 K/mcL (1.6-8.9); Platelet Count 122 K/mcL (140-400); Red Blood Count 3.05 M/mcL (4.19-5.50); Red Cell Distribution Width 13.7 % (11.5-14.5); Segmented Neutrophils % 52.4 %; White Blood Count 1.7 K/mcL (4.3-11.1)
[2020-08-04 16:31] LABS: Platelet Estimate Slight Decrease (Normal); Reactive Lymphocytes Present (Not Present)
[2020-08-04] MEDS: Insulin DETEMIR 100 UNIT/ML X5UNITS SUBQ SCH (20:55)
[2020-08-05] MEDS: Morphine Sulfate 2 MG/ML SYRINGE IVP PRN ×2 (02:09→18:02)
[2020-08-05] MEDS: *HR* Heparin 5,000 UNIT/ML VIAL SQ SCH ×3 (05:29→20:40)
[2020-08-05 07:41] LABS: Calcium 8.2 mg/dL (8.6-10.3); Potassium 4.5 mEq/L (3.5-5.1)
[2020-08-05] MEDS: Insulin LISPRO 300 UNITS/3 ML VIAL SUBQ SCH ×3 (08:53→17:33)
[2020-08-05] MEDS: Piperacillin/Tazobactam 3.375 GM in 0.9 % Sodium Chloride Mini Bag 100 ML IVPB SCH ×2 (09:04→20:38)
[2020-08-05] MEDS: calcitrioL 0.25 MCG CAPSULE PO SCH (09:05)
[2020-08-05] MEDS: Aspirin 81 MG TAB.CHEW PO SCH (09:05)
[2020-08-05] MEDS: Metoprolol XL (24 HR) Succ 25 MG TAB.ER.24H PO SCH ×2 (09:06→20:40)
[2020-08-05] MEDS: hydrALAZINE 25 MG TABLET PO SCH ×2 (09:06→20:40)
[2020-08-05] MEDS: Cholecalciferol (D-3) 1,000 UNIT (25MCG) TABLET PO SCH (09:07)
[2020-08-05] MEDS: Isosorbide MONOnitrate (24 HR) 30 MG TAB.ER.24H PO SCH (09:07)
[2020-08-05] MEDS: Acetaminophen 325 MG TABLET PO PRN (09:07)
[2020-08-05] MEDS: Famotidine 20 MG TABLET PO SCH (09:08)
[2020-08-05] MEDS: (Zinc Acetate [Galzin] 50 MG) PO SCH ×3 (09:08→20:43)
[2020-08-05] MEDS ORDERED: Perflutren Lipid Microsphere 1.3 ML in 0.9 % Sodium Chloride 8.7 ML IVP PRN (12:38)
[2020-08-05] MEDS: Insulin DETEMIR 100 UNIT/ML X5UNITS SUBQ SCH (20:41)
[2020-08-06] MEDS: Acetaminophen 325 MG TABLET PO PRN ×2 (00:54→11:52)
[2020-08-06 05:29] LABS: Calcium 7.9 mg/dL (8.6-10.3); Potassium 4.3 mEq/L (3.5-5.1)
[2020-08-06] MEDS: *HR* Heparin 5,000 UNIT/ML VIAL SQ SCH ×3 (05:55→21:28)
[2020-08-06] MEDS: Piperacillin/Tazobactam 3.375 GM in 0.9 % Sodium Chloride Mini Bag 100 ML IVPB SCH ×2 (09:02→21:28)
[2020-08-06] MEDS: Insulin LISPRO 300 UNITS/3 ML VIAL SUBQ SCH ×3 (09:03→17:29)
[2020-08-06] MEDS: Metoprolol XL (24 HR) Succ 25 MG TAB.ER.24H PO SCH ×2 (09:04→21:27)
[2020-08-06] MEDS: Isosorbide MONOnitrate (24 HR) 30 MG TAB.ER.24H PO SCH (09:04)
[2020-08-06] MEDS: calcitrioL 0.25 MCG CAPSULE PO SCH (09:04)
[2020-08-06] MEDS: hydrALAZINE 25 MG TABLET PO SCH ×2 (09:04→21:28)
[2020-08-06] MEDS: Famotidine 20 MG TABLET PO SCH (09:04)
[2020-08-06] MEDS: Cholecalciferol (D-3) 1,000 UNIT (25MCG) TABLET PO SCH (09:04)
[2020-08-06] MEDS: Aspirin 81 MG TAB.CHEW PO SCH (09:04)
[2020-08-06] MEDS: (Zinc Acetate [Galzin] 50 MG) PO SCH ×2 (09:05→14:37)
[2020-08-06] MEDS ORDERED: *HR* Heparin 10,000 UNIT/10 ML VIAL IV PRN (11:59)
[2020-08-06] MEDS ORDERED: 0.9 % Sodium Chloride 250 ML IVC PRN (11:59)
[2020-08-06] MEDS: Doxycycline 100 MG CAPSULE PO SCH (21:27)
[2020-08-06] MEDS: Insulin DETEMIR 100 UNIT/ML X5UNITS SUBQ SCH (21:31)
[2020-08-07] MEDS: *HR* Heparin 5,000 UNIT/ML VIAL SQ SCH ×3 (05:21→20:37)
[2020-08-07 06:22] LABS: Calcium 8.1 mg/dL (8.6-10.3); Potassium 4.2 mEq/L (3.5-5.1)
[2020-08-07] MEDS: Piperacillin/Tazobactam 3.375 GM in 0.9 % Sodium Chloride Mini Bag 100 ML IVPB SCH ×2 (07:51→20:35)
[2020-08-07] MEDS: Isosorbide MONOnitrate (24 HR) 30 MG TAB.ER.24H PO SCH (07:52)
[2020-08-07] MEDS: Famotidine 20 MG TABLET PO SCH (07:52)
[2020-08-07] MEDS: Cholecalciferol (D-3) 1,000 UNIT (25MCG) TABLET PO SCH (07:52)
[2020-08-07] MEDS: calcitrioL 0.25 MCG CAPSULE PO SCH (07:52)
[2020-08-07] MEDS: Aspirin 81 MG TAB.CHEW PO SCH (07:52)
[2020-08-07] MEDS: Metoprolol XL (24 HR) Succ 25 MG TAB.ER.24H PO SCH ×2 (07:53→20:37)
[2020-08-07] MEDS: Acetaminophen 325 MG TABLET PO PRN ×2 (07:53→15:20)
[2020-08-07] MEDS: Doxycycline 100 MG CAPSULE PO SCH (07:53)
[2020-08-07] MEDS: hydrALAZINE 25 MG TABLET PO SCH ×2 (07:53→20:37)
[2020-08-07] MEDS: Insulin LISPRO 300 UNITS/3 ML VIAL SUBQ SCH ×3 (09:22→16:42)
[2020-08-07] MEDS: Nitroglycerin 0.4 MG TAB.SUBL SL PRN (15:21)
[2020-08-07] MEDS ORDERED: Acetaminophen 325 MG TABLET PO ONE (17:18)
[2020-08-07] MEDS: Insulin DETEMIR 100 UNIT/ML X5UNITS SUBQ SCH (20:38)
[2020-08-08] MEDS: *HR* Heparin 5,000 UNIT/ML VIAL SQ SCH ×3 (05:25→22:23)
[2020-08-08 05:51] LABS: Calcium 8.4 mg/dL (8.6-10.3); Potassium 4.4 mEq/L (3.5-5.1)
[2020-08-08] MEDS ORDERED: 0.9 % Sodium Chloride 250 ML IVC PRN (07:45)
[2020-08-08] MEDS ORDERED: *HR* Heparin 10,000 UNIT/10 ML VIAL IV PRN (07:45)
[2020-08-08] MEDS ORDERED: 0.9 % Sodium Chloride 1,000 ML PRIME SCH (07:45)
[2020-08-08] MEDS: Piperacillin/Tazobactam 3.375 GM in 0.9 % Sodium Chloride Mini Bag 100 ML IVPB SCH ×2 (08:40→22:27)
[2020-08-08] MEDS: Metoprolol XL (24 HR) Succ 25 MG TAB.ER.24H PO SCH ×2 (08:41→22:23)
[2020-08-08] MEDS: Cholecalciferol (D-3) 1,000 UNIT (25MCG) TABLET PO SCH (08:41)
[2020-08-08] MEDS: calcitrioL 0.25 MCG CAPSULE PO SCH (08:41)
[2020-08-08] MEDS: Aspirin 81 MG TAB.CHEW PO SCH (08:42)
[2020-08-08] MEDS: Isosorbide MONOnitrate (24 HR) 30 MG TAB.ER.24H PO SCH (08:42)
[2020-08-08] MEDS: Acetaminophen 325 MG TABLET PO PRN ×2 (08:42→22:23)
[2020-08-08] MEDS: Famotidine 20 MG TABLET PO SCH (08:42)
[2020-08-08] MEDS: Insulin LISPRO 300 UNITS/3 ML VIAL SUBQ SCH ×3 (08:43→17:33)
[2020-08-08] MEDS: hydrALAZINE 25 MG TABLET PO SCH ×2 (08:43→22:23)
[2020-08-08] MEDS: Insulin DETEMIR 100 UNIT/ML X5UNITS SUBQ SCH (22:27)
[2020-08-09] MEDS: *HR* Heparin 5,000 UNIT/ML VIAL SQ SCH ×3 (06:14→21:10)
[2020-08-09 06:50] LABS: Hemoglobin 8.9 g/dL (12.9-16.9); Platelet Count 115 K/mcL (140-400)
[2020-08-09 06:51] LABS: Basophils % 0.6 %; Immature Granulocytes % 0.6 % (0-4); Lymphocytes % 53.7 %; Mean Corpuscular Hemoglobin 30.1 pg (28.0-33.3); Mean Corpuscular Volume 91.2 fL (83.0-100.0); Mean Platelet Volume 11.5 fL (9.4-12.4); Monocytes # 0.3 K/mcL (0.0-1.3); Monocytes % 17.5 %; Neutrophils # 0.5 K/mcL (1.6-8.9); Red Blood Count 2.96 M/mcL (4.19-5.50); Red Cell Distribution Width 13.6 % (11.5-14.5); Segmented Neutrophils % 27.6 %; White Blood Count 1.8 K/mcL (4.3-11.1)
[2020-08-09 07:11] LABS: Platelet Estimate Slight Decrease (Normal)
[2020-08-09 07:12] LABS: Anisocytosis 1+ (Not Present); Toxic Granulation Present (Not Present)
[2020-08-09 08:06] LABS: Calcium 8.3 mg/dL (8.6-10.3)
[2020-08-09] MEDS: Famotidine 20 MG TABLET PO SCH (09:13)
[2020-08-09] MEDS: Aspirin 81 MG TAB.CHEW PO SCH (09:13)
[2020-08-09] MEDS: calcitrioL 0.25 MCG CAPSULE PO SCH (09:13)
[2020-08-09] MEDS: Cholecalciferol (D-3) 1,000 UNIT (25MCG) TABLET PO SCH (09:13)
[2020-08-09] MEDS: Isosorbide MONOnitrate (24 HR) 30 MG TAB.ER.24H PO SCH (09:13)
[2020-08-09] MEDS: Metoprolol XL (24 HR) Succ 25 MG TAB.ER.24H PO SCH ×2 (09:13→21:09)
[2020-08-09] MEDS: hydrALAZINE 25 MG TABLET PO SCH ×2 (09:14→21:10)
[2020-08-09] MEDS: Piperacillin/Tazobactam 3.375 GM in 0.9 % Sodium Chloride Mini Bag 100 ML IVPB SCH ×2 (09:14→21:11)
[2020-08-09] MEDS: Insulin LISPRO 300 UNITS/3 ML VIAL SUBQ SCH ×3 (09:16→17:15)
[2020-08-09] MEDS: Insulin DETEMIR 100 UNIT/ML X5UNITS SUBQ SCH (21:11)
[2020-08-10 06:33] LABS: Calcium 8.1 mg/dL (8.6-10.3)
[2020-08-10] MEDS: *HR* Heparin 5,000 UNIT/ML VIAL SQ SCH ×3 (06:41→21:14)
[2020-08-10] MEDS ORDERED: 0.9 % Sodium Chloride 250 ML IVC PRN (07:28)
[2020-08-10] MEDS ORDERED: *HR* Heparin 10,000 UNIT/10 ML VIAL IV PRN (07:34)
[2020-08-10] MEDS: hydrALAZINE 25 MG TABLET PO SCH ×2 (08:00→21:15)
[2020-08-10] MEDS: Metoprolol XL (24 HR) Succ 25 MG TAB.ER.24H PO SCH ×2 (08:00→21:16)
[2020-08-10] MEDS: Cholecalciferol (D-3) 1,000 UNIT (25MCG) TABLET PO SCH (08:41)
[2020-08-10] MEDS: Aspirin 81 MG TAB.CHEW PO SCH (08:41)
[2020-08-10] MEDS: Insulin LISPRO 300 UNITS/3 ML VIAL SUBQ SCH ×3 (08:41→16:56)
[2020-08-10] MEDS: calcitrioL 0.25 MCG CAPSULE PO SCH (08:42)
[2020-08-10] MEDS: Famotidine 20 MG TABLET PO SCH (08:42)
[2020-08-10] MEDS: Isosorbide MONOnitrate (24 HR) 30 MG TAB.ER.24H PO SCH (08:42)
[2020-08-10] MEDS: Piperacillin/Tazobactam 3.375 GM in 0.9 % Sodium Chloride Mini Bag 100 ML IVPB SCH ×2 (08:43→21:15)
[2020-08-10] MEDS ORDERED: Insulin DETEMIR 100 UNIT/ML X5UNITS SUBQ ONE (21:00)
[2020-08-10] MEDS: Loratadine 10 MG TABLET PO SCH (21:16)
[2020-08-11 07:08] LABS: Basophils % 0.4 %; Hematocrit 26.9 % (37.5-50.1); Hemoglobin 8.9 g/dL (12.9-16.9); Immature Granulocytes % 0.4 % (0-4); Mean Corpuscular HGB Conc 33.1 g/dL (31.6-35.5); Mean Corpuscular Hemoglobin 29.1 pg (28.0-33.3); Mean Corpuscular Volume 87.9 fL (83.0-100.0); Mean Platelet Volume 11.4 fL (9.4-12.4); Monocytes # 0.3 K/mcL (0.0-1.3); Monocytes % 11.3 %; Neutrophils # 1.3 K/mcL (1.6-8.9); Platelet Count 125 K/mcL (140-400); Red Blood Count 3.06 M/mcL (4.19-5.50); Red Cell Distribution Width 13.3 % (11.5-14.5); Segmented Neutrophils % 50.9 %; White Blood Count 2.6 K/mcL (4.3-11.1)
[2020-08-11 07:31] LABS: Calcium 8.4 mg/dL (8.6-10.3); Magnesium 1.9 mg/dL (1.6-2.6); Potassium 4.3 mEq/L (3.5-5.1)
[2020-08-11 08:19] LABS: Folate 7.9 ng/mL (3.0-16.0)
[2020-08-11] MEDS: Piperacillin/Tazobactam 3.375 GM in 0.9 % Sodium Chloride Mini Bag 100 ML IVPB SCH ×2 (09:20→20:21)
[2020-08-11] MEDS: Aspirin 81 MG TAB.CHEW PO SCH (09:24)
[2020-08-11] MEDS: Famotidine 20 MG TABLET PO SCH (09:28)
[2020-08-11] MEDS: Cholecalciferol (D-3) 1,000 UNIT (25MCG) TABLET PO SCH (09:28)
[2020-08-11] MEDS: Metoprolol XL (24 HR) Succ 25 MG TAB.ER.24H PO SCH ×2 (09:29→20:19)
[2020-08-11] MEDS: hydrALAZINE 25 MG TABLET PO SCH ×2 (09:29→20:19)
[2020-08-11] MEDS: Isosorbide MONOnitrate (24 HR) 30 MG TAB.ER.24H PO SCH (09:29)
[2020-08-11] MEDS: calcitrioL 0.25 MCG CAPSULE PO SCH (09:38)
[2020-08-11] MEDS: Insulin LISPRO 300 UNITS/3 ML VIAL SUBQ SCH ×3 (09:43→17:33)
[2020-08-11] MEDS: *HR* Heparin 5,000 UNIT/ML VIAL SQ SCH ×3 (09:46→21:13)
[2020-08-11 11:02] LABS: Estimated Average Glucose 163 mg/dl; Hemoglobin A1C 7.3 %
[2020-08-11] MEDS: Loratadine 10 MG TABLET PO SCH (20:19)
[2020-08-11] MEDS: Insulin DETEMIR 100 UNIT/ML X5UNITS SUBQ SCH (20:20)
[2020-08-12] MEDS: *HR* Heparin 5,000 UNIT/ML VIAL SQ SCH ×3 (05:12→21:18)
[2020-08-12 05:45] LABS: Basophils % 0.3 %; Hematocrit 26.8 % (37.5-50.1); Hemoglobin 8.8 g/dL (12.9-16.9); Immature Granulocytes % 0.3 % (0-4); Lymphocytes # 1.2 K/mcL (0.6-4.6); Lymphocytes % 30.3 %; Mean Corpuscular HGB Conc 32.8 g/dL (31.6-35.5); Mean Corpuscular Hemoglobin 29.1 pg (28.0-33.3); Mean Corpuscular Volume 88.7 fL (83.0-100.0); Mean Platelet Volume 11.6 fL (9.4-12.4); Monocytes # 0.4 K/mcL (0.0-1.3); Monocytes % 10.3 %; Neutrophils # 2.3 K/mcL (1.6-8.9); Platelet Count 146 K/mcL (140-400); Red Blood Count 3.02 M/mcL (4.19-5.50); Red Cell Distribution Width 13.4 % (11.5-14.5); Segmented Neutrophils % 58.8 %
[2020-08-12 05:46] LABS: White Blood Count 3.9 K/mcL (4.3-11.1)
[2020-08-12 06:03] LABS: Calcium 8.4 mg/dL (8.6-10.3); Potassium 4.9 mEq/L (3.5-5.1)
[2020-08-12 07:20] LABS: Adenovirus F 40/41 PCR Not detected (Not detect); Astrovirus PCR Not detected (Not detect); C.difficile Toxin A/B Gene PCR Not detected (Not detect); Campylobacter by PCR Not detected (Not detect); Cryptosporidium by PCR Not detected (Not detect); Cyclospora cayetanensis PCR Not detected (Not detect); E. coli O157 by PCR Not detected (Not detect); Entamoeba histolytica PCR Not detected (Not detect); Enteroaggregative E.coli(EAEC) Not detected (Not detect); Enteropathogenic E.coli(EPEC) Not detected (Not detect); Enterotoxigenic E.coli (ETEC) Not detected (Not detect); Giardia lamblia PCR Not detected (Not detect); Norovirus GI/GII PCR Not detected (Not detect); Plesiomonas shigelloides PCR Not detected (Not detect); Rotavirus A PCR Not detected (Not detect); Salmonella PCR Not detected (Not detect); Sapovirus PCR Not detected (Not detect); Shig/EnteroinvasiveE coli EIEC Not detected (Not detect); Shigalike tox-prod E coli STEC Not detected (Not detect); Vibrio PCR Not detected (Not detect); Vibrio cholerae PCR Not detected (Not detect); Yersinia enterocolitica PCR Not detected (Not detect)
[2020-08-12] MEDS: Insulin LISPRO 300 UNITS/3 ML VIAL SUBQ SCH ×4 (09:30→21:19)
[2020-08-12] MEDS: Aspirin 81 MG TAB.CHEW PO SCH (09:30)
[2020-08-12] MEDS: calcitrioL 0.25 MCG CAPSULE PO SCH (09:31)
[2020-08-12] MEDS: Isosorbide MONOnitrate (24 HR) 30 MG TAB.ER.24H PO SCH (09:31)
[2020-08-12] MEDS: Famotidine 20 MG TABLET PO SCH ×2 (09:31→15:22)
[2020-08-12] MEDS: Cholecalciferol (D-3) 1,000 UNIT (25MCG) TABLET PO SCH (09:32)
[2020-08-12] MEDS: hydrALAZINE 25 MG TABLET PO SCH ×2 (09:32→20:11)
[2020-08-12] MEDS: Metoprolol XL (24 HR) Succ 25 MG TAB.ER.24H PO SCH ×2 (09:32→20:11)
[2020-08-12] MEDS: Piperacillin/Tazobactam 3.375 GM in 0.9 % Sodium Chloride Mini Bag 100 ML IVPB SCH ×2 (09:58→20:11)
[2020-08-12] MEDS: Insulin DETEMIR 100 UNIT/ML X5UNITS SUBQ SCH (20:11)
[2020-08-12] MEDS: Loratadine 10 MG TABLET PO SCH (20:11)
[2020-08-13] MEDS: *HR* Heparin 5,000 UNIT/ML VIAL SQ SCH ×3 (05:07→20:54)
[2020-08-13 05:24] LABS: Basophils % 0.3 %; Eosinophils # 0.2 K/mcL (0.0-0.6); Eosinophils % 2.6 %; Hematocrit 27.3 % (37.5-50.1); Hemoglobin 9.1 g/dL (12.9-16.9); Immature Granulocytes % 0.7 % (0-4); Lymphocytes # 1.2 K/mcL (0.6-4.6); Lymphocytes % 20.5 %; Mean Corpuscular HGB Conc 33.3 g/dL (31.6-35.5); Mean Corpuscular Volume 90.1 fL (83.0-100.0); Mean Platelet Volume 11.4 fL (9.4-12.4); Monocytes # 0.6 K/mcL (0.0-1.3); Monocytes % 10.3 %; Neutrophils # 3.8 K/mcL (1.6-8.9); Platelet Count 163 K/mcL (140-400); Red Blood Count 3.03 M/mcL (4.19-5.50); Red Cell Distribution Width 13.2 % (11.5-14.5); Segmented Neutrophils % 65.6 %
[2020-08-13 05:31] LABS: White Blood Count 5.8 K/mcL (4.3-11.1)
[2020-08-13 05:37] LABS: Calcium 8.7 mg/dL (8.6-10.3); Magnesium 2.2 mg/dL (1.6-2.6); Phosphorous 5.2 mg/dL (2.7-4.5); Potassium 4.5 mEq/L (3.5-5.1)
[2020-08-13] MEDS ORDERED: 0.9 % Sodium Chloride 2,000 ML ONE (07:15)
[2020-08-13] MEDS ORDERED: 0.9 % Sodium Chloride 250 ML IVC PRN (07:52)
[2020-08-13] MEDS: Cholecalciferol (D-3) 1,000 UNIT (25MCG) TABLET PO SCH (07:55)
[2020-08-13] MEDS: Aspirin 81 MG TAB.CHEW PO SCH (07:55)
[2020-08-13] MEDS: Metoprolol XL (24 HR) Succ 25 MG TAB.ER.24H PO SCH ×2 (07:55→20:50)
[2020-08-13] MEDS: Famotidine 20 MG TABLET PO SCH (07:55)
[2020-08-13] MEDS: calcitrioL 0.25 MCG CAPSULE PO SCH (07:57)
[2020-08-13] MEDS: Insulin LISPRO 300 UNITS/3 ML VIAL SUBQ SCH ×4 (07:57→21:03)
[2020-08-13] MEDS ORDERED: 0.9 % Sodium Chloride 1,000 ML PRIME SCH (08:00)
[2020-08-13] MEDS: Piperacillin/Tazobactam 3.375 GM in 0.9 % Sodium Chloride Mini Bag 100 ML IVPB SCH ×2 (11:26→20:51)
[2020-08-13] MEDS: Isosorbide MONOnitrate (24 HR) 30 MG TAB.ER.24H PO SCH (11:29)
[2020-08-13] MEDS: hydrALAZINE 25 MG TABLET PO SCH ×2 (11:29→20:50)
[2020-08-13] MEDS: Loratadine 10 MG TABLET PO SCH (20:50)
[2020-08-13] MEDS: Insulin DETEMIR 100 UNIT/ML X5UNITS SUBQ SCH (20:50)
[2020-08-14 02:59] LABS: Basophils % 0.2 %; Hematocrit 26.5 % (37.5-50.1); Hemoglobin 8.7 g/dL (12.9-16.9); Immature Granulocytes % 0.5 % (0-4); Lymphocytes # 1.5 K/mcL (0.6-4.6); Mean Corpuscular HGB Conc 32.8 g/dL (31.6-35.5); Mean Corpuscular Hemoglobin 28.9 pg (28.0-33.3); Mean Platelet Volume 11.2 fL (9.4-12.4); Monocytes # 0.6 K/mcL (0.0-1.3); Monocytes % 10.4 %; Neutrophils # 3.5 K/mcL (1.6-8.9); Platelet Count 165 K/mcL (140-400); Red Blood Count 3.01 M/mcL (4.19-5.50); Red Cell Distribution Width 13.2 % (11.5-14.5); Segmented Neutrophils % 62.9 %; White Blood Count 5.6 K/mcL (4.3-11.1)
[2020-08-14 03:17] LABS: Calcium 8.3 mg/dL (8.6-10.3); Magnesium 1.8 mg/dL (1.6-2.6); Potassium 3.6 mEq/L (3.5-5.1)
[2020-08-14] MEDS: *HR* Heparin 5,000 UNIT/ML VIAL SQ SCH ×3 (05:10→20:35)
[2020-08-14] MEDS: Insulin LISPRO 300 UNITS/3 ML VIAL SUBQ SCH ×4 (08:30→21:41)
[2020-08-14] MEDS: Isosorbide MONOnitrate (24 HR) 30 MG TAB.ER.24H PO SCH (08:36)
[2020-08-14] MEDS: Metoprolol XL (24 HR) Succ 25 MG TAB.ER.24H PO SCH ×2 (08:36→20:35)
[2020-08-14] MEDS: hydrALAZINE 25 MG TABLET PO SCH ×2 (08:36→20:35)
[2020-08-14] MEDS: Cholecalciferol (D-3) 1,000 UNIT (25MCG) TABLET PO SCH (08:36)
[2020-08-14] MEDS: calcitrioL 0.25 MCG CAPSULE PO SCH (08:36)
[2020-08-14] MEDS: Aspirin 81 MG TAB.CHEW PO SCH (08:36)
[2020-08-14] MEDS: Famotidine 20 MG TABLET PO SCH (08:36)
[2020-08-14] MEDS: Piperacillin/Tazobactam 3.375 GM in 0.9 % Sodium Chloride Mini Bag 100 ML IVPB SCH (08:38)
[2020-08-14] MEDS: Loratadine 10 MG TABLET PO SCH (20:35)
[2020-08-14] MEDS: Insulin DETEMIR 100 UNIT/ML X5UNITS SUBQ SCH (21:42)
[2020-08-15] MEDS: *HR* Heparin 5,000 UNIT/ML VIAL SQ SCH ×3 (06:21→21:00)
[2020-08-15] MEDS ORDERED: 0.9 % Sodium Chloride 250 ML IVC PRN ×2 (07:53→08:29)
[2020-08-15] MEDS ORDERED: *HR* Heparin 10,000 UNIT/10 ML VIAL IV PRN (08:29)
[2020-08-15] MEDS: hydrALAZINE 25 MG TABLET PO SCH ×2 (08:39→21:01)
[2020-08-15] MEDS: Insulin LISPRO 300 UNITS/3 ML VIAL SUBQ SCH ×4 (08:39→20:55)
[2020-08-15] MEDS: Famotidine 20 MG TABLET PO SCH (08:39)
[2020-08-15] MEDS: Cholecalciferol (D-3) 1,000 UNIT (25MCG) TABLET PO SCH (08:39)
[2020-08-15] MEDS: calcitrioL 0.25 MCG CAPSULE PO SCH (08:39)
[2020-08-15] MEDS: Aspirin 81 MG TAB.CHEW PO SCH (08:39)
[2020-08-15] MEDS: Isosorbide MONOnitrate (24 HR) 30 MG TAB.ER.24H PO SCH (08:39)
[2020-08-15] MEDS: Metoprolol XL (24 HR) Succ 25 MG TAB.ER.24H PO SCH ×2 (08:39→21:00)
[2020-08-15] MEDS ORDERED: *HR* Heparin 10,000 UNIT/10 ML VIAL ONE (08:42)
[2020-08-15] MEDS: Acetaminophen 325 MG TABLET PO PRN (14:52)
[2020-08-15] MEDS ORDERED: INSULIN LISPRO SQ SCH (16:30)
[2020-08-15] MEDS: Insulin DETEMIR 100 UNIT/ML X5UNITS SUBQ SCH (20:59)
[2020-08-15] MEDS: Loratadine 10 MG TABLET PO SCH (21:00)
[2020-08-15] MEDS ORDERED: Insulin DETEMIR 100 UNIT/ML X5UNITS SUBQ SCH (21:00)
[2020-08-16] MEDS: Acetaminophen 325 MG TABLET PO PRN ×2 (00:23→22:45)
[2020-08-16 01:58] LABS: Basophils % 0.3 %; Hematocrit 25.8 % (37.5-50.1); Hemoglobin 8.5 g/dL (12.9-16.9); Immature Granulocytes % 0.4 % (0-4); Lymphocytes # 1.7 K/mcL (0.6-4.6); Lymphocytes % 21.9 %; Mean Corpuscular HGB Conc 32.9 g/dL (31.6-35.5); Mean Corpuscular Hemoglobin 29.4 pg (28.0-33.3); Mean Corpuscular Volume 89.3 fL (83.0-100.0); Mean Platelet Volume 11.5 fL (9.4-12.4); Monocytes # 0.8 K/mcL (0.0-1.3); Monocytes % 9.8 %; Neutrophils # 5.2 K/mcL (1.6-8.9); Platelet Count 197 K/mcL (140-400); Red Blood Count 2.89 M/mcL (4.19-5.50); Red Cell Distribution Width 13.2 % (11.5-14.5); Segmented Neutrophils % 67.6 %; White Blood Count 7.6 K/mcL (4.3-11.1)
[2020-08-16 02:16] LABS: Calcium 8.7 mg/dL (8.6-10.3); Potassium 4.4 mEq/L (3.5-5.1)
[2020-08-16] MEDS: *HR* Heparin 5,000 UNIT/ML VIAL SQ SCH ×3 (05:58→21:14)
[2020-08-16] MEDS: Insulin LISPRO 300 UNITS/3 ML VIAL SUBQ SCH ×4 (06:51→21:15)
[2020-08-16] MEDS: Famotidine 20 MG TABLET PO SCH (10:49)
[2020-08-16] MEDS: hydrALAZINE 25 MG TABLET PO SCH ×2 (10:49→21:14)
[2020-08-16] MEDS: Cholecalciferol (D-3) 1,000 UNIT (25MCG) TABLET PO SCH (10:49)
[2020-08-16] MEDS: Isosorbide MONOnitrate (24 HR) 30 MG TAB.ER.24H PO SCH (10:49)
[2020-08-16] MEDS: Metoprolol XL (24 HR) Succ 25 MG TAB.ER.24H PO SCH ×2 (10:49→21:14)
[2020-08-16] MEDS: Aspirin 81 MG TAB.CHEW PO SCH (10:50)
[2020-08-16] MEDS: calcitrioL 0.25 MCG CAPSULE PO SCH (10:50)
[2020-08-16] MEDS: *HR* Dextrose 50 % in Water (Vial) 50 ML VIAL IVP PRN (10:52)
[2020-08-16] MEDS: Loratadine 10 MG TABLET PO SCH (21:14)
[2020-08-17 06:14] LABS: Basophils % 0.2 %; Hematocrit 24.2 % (37.5-50.1); Hemoglobin 8.1 g/dL (12.9-16.9); Immature Granulocytes % 0.2 % (0-4); Lymphocytes # 2.1 K/mcL (0.6-4.6); Lymphocytes % 24.8 %; Mean Corpuscular HGB Conc 33.5 g/dL (31.6-35.5); Mean Corpuscular Hemoglobin 28.9 pg (28.0-33.3); Mean Corpuscular Volume 86.4 fL (83.0-100.0); Monocytes # 0.7 K/mcL (0.0-1.3); Monocytes % 8.7 %; Neutrophils # 5.7 K/mcL (1.6-8.9); Platelet Count 221 K/mcL (140-400); Red Cell Distribution Width 13.2 % (11.5-14.5); Segmented Neutrophils % 66.1 %; White Blood Count 8.6 K/mcL (4.3-11.1)
[2020-08-17] MEDS: *HR* Heparin 5,000 UNIT/ML VIAL SQ SCH ×3 (06:23→21:17)
[2020-08-17 06:33] LABS: Calcium 8.8 mg/dL (8.6-10.3); Potassium 4.7 mEq/L (3.5-5.1)
[2020-08-17] MEDS ORDERED: 0.9 % Sodium Chloride 2,000 ML ONE (06:39)
[2020-08-17] MEDS ORDERED: 0.9 % Sodium Chloride 250 ML IVC PRN (07:10)
[2020-08-17] MEDS: Insulin LISPRO 300 UNITS/3 ML VIAL SUBQ SCH ×4 (07:38→21:16)
[2020-08-17] MEDS: Famotidine 20 MG TABLET PO SCH (12:01)
[2020-08-17] MEDS: Aspirin 81 MG TAB.CHEW PO SCH (12:01)
[2020-08-17] MEDS: calcitrioL 0.25 MCG CAPSULE PO SCH (12:01)
[2020-08-17] MEDS: Isosorbide MONOnitrate (24 HR) 30 MG TAB.ER.24H PO SCH (12:01)
[2020-08-17] MEDS: Metoprolol XL (24 HR) Succ 25 MG TAB.ER.24H PO SCH ×2 (12:02→21:17)
[2020-08-17] MEDS: hydrALAZINE 25 MG TABLET PO SCH ×2 (12:02→21:17)
[2020-08-17] MEDS: Cholecalciferol (D-3) 1,000 UNIT (25MCG) TABLET PO SCH (12:02)
[2020-08-17] MEDS: Loratadine 10 MG TABLET PO SCH (21:14)
[2020-08-18] MEDS: *HR* Heparin 5,000 UNIT/ML VIAL SQ SCH ×3 (04:22→20:55)
[2020-08-18] MEDS: calcitrioL 0.25 MCG CAPSULE PO SCH (08:51)
[2020-08-18] MEDS: Cholecalciferol (D-3) 1,000 UNIT (25MCG) TABLET PO SCH (08:52)
[2020-08-18] MEDS: hydrALAZINE 25 MG TABLET PO SCH ×2 (08:52→20:55)
[2020-08-18] MEDS: Metoprolol XL (24 HR) Succ 25 MG TAB.ER.24H PO SCH ×2 (08:52→20:55)
[2020-08-18] MEDS: Famotidine 20 MG TABLET PO SCH (08:52)
[2020-08-18] MEDS: Isosorbide MONOnitrate (24 HR) 30 MG TAB.ER.24H PO SCH (08:52)
[2020-08-18] MEDS: Aspirin 81 MG TAB.CHEW PO SCH (08:52)
[2020-08-18] MEDS: Insulin LISPRO 300 UNITS/3 ML VIAL SUBQ SCH ×4 (09:03→21:01)
[2020-08-18] MEDS: Loratadine 10 MG TABLET PO SCH (20:55)
[2020-08-19] MEDS: Acetaminophen 325 MG TABLET PO PRN (05:50)
[2020-08-19] MEDS: *HR* Heparin 5,000 UNIT/ML VIAL SQ SCH ×3 (05:50→20:15)
[2020-08-19] MEDS: calcitrioL 0.25 MCG CAPSULE PO SCH (07:30)
[2020-08-19] MEDS: Cholecalciferol (D-3) 1,000 UNIT (25MCG) TABLET PO SCH (07:30)
[2020-08-19] MEDS: Aspirin 81 MG TAB.CHEW PO SCH (07:31)
[2020-08-19] MEDS: Famotidine 20 MG TABLET PO SCH (07:31)
[2020-08-19] MEDS: Metoprolol XL (24 HR) Succ 25 MG TAB.ER.24H PO SCH ×2 (07:31→20:15)
[2020-08-19] MEDS: hydrALAZINE 25 MG TABLET PO SCH ×2 (07:31→20:15)
[2020-08-19] MEDS: Isosorbide MONOnitrate (24 HR) 30 MG TAB.ER.24H PO SCH (07:31)
[2020-08-19] MEDS: Insulin LISPRO 300 UNITS/3 ML VIAL SUBQ SCH ×4 (07:33→20:16)
[2020-08-19] MEDS ORDERED: Ipratropium/Albuterol Neb 3 ML IH PRN (07:53)
[2020-08-19] MEDS: Loratadine 10 MG TABLET PO SCH (20:15)
[2020-08-19] MEDS: Insulin DETEMIR 100 UNIT/ML X5UNITS SUBQ SCH (20:18)
[2020-08-20 05:12] LABS: Basophils # 0.1 K/mcL (0.0-0.2); Basophils % 0.7 %; Hematocrit 25.7 % (37.5-50.1); Hemoglobin 8.7 g/dL (12.9-16.9); Immature Granulocytes % 0.2 % (0-4); Lymphocytes # 2.3 K/mcL (0.6-4.6); Lymphocytes % 23.5 %; Mean Corpuscular HGB Conc 33.9 g/dL (31.6-35.5); Mean Corpuscular Volume 88.6 fL (83.0-100.0); Mean Platelet Volume 10.7 fL (9.4-12.4); Monocytes # 0.8 K/mcL (0.0-1.3); Monocytes % 8.3 %; Neutrophils # 6.5 K/mcL (1.6-8.9); Platelet Count 263 K/mcL (140-400); Red Cell Distribution Width 13.1 % (11.5-14.5); Segmented Neutrophils % 67.3 %; White Blood Count 9.6 K/mcL (4.3-11.1)
[2020-08-20 05:27] LABS: Calcium 9.5 mg/dL (8.6-10.3); Potassium 4.6 mEq/L (3.5-5.1)
[2020-08-20] MEDS: *HR* Heparin 5,000 UNIT/ML VIAL SQ SCH ×3 (05:51→20:37)
[2020-08-20] MEDS: Acetaminophen 325 MG TABLET PO PRN (05:51)
[2020-08-20] MEDS ORDERED: *HR* Heparin 10,000 UNIT/10 ML VIAL IV PRN (07:22)
[2020-08-20] MEDS ORDERED: 0.9 % Sodium Chloride 250 ML IVC PRN (07:22)
[2020-08-20] MEDS ORDERED: 0.9 % Sodium Chloride 1,000 ML PRIME SCH (07:30)
[2020-08-20] MEDS: Insulin LISPRO 300 UNITS/3 ML VIAL SUBQ SCH ×4 (08:38→20:38)
[2020-08-20] MEDS: hydrALAZINE 25 MG TABLET PO SCH ×2 (09:37→20:37)
[2020-08-20] MEDS: Aspirin 81 MG TAB.CHEW PO SCH (12:26)
[2020-08-20] MEDS: Cholecalciferol (D-3) 1,000 UNIT (25MCG) TABLET PO SCH (12:27)
[2020-08-20] MEDS: Metoprolol XL (24 HR) Succ 25 MG TAB.ER.24H PO SCH ×2 (12:27→20:37)
[2020-08-20] MEDS: Famotidine 20 MG TABLET PO SCH (12:27)
[2020-08-20] MEDS: calcitrioL 0.25 MCG CAPSULE PO SCH (12:27)
[2020-08-20] MEDS: Isosorbide MONOnitrate (24 HR) 30 MG TAB.ER.24H PO SCH (12:28)
[2020-08-20] MEDS: Loratadine 10 MG TABLET PO SCH (20:37)
[2020-08-20] MEDS: Insulin DETEMIR 100 UNIT/ML X5UNITS SUBQ SCH (20:38)
[2020-08-21] MEDS: *HR* Heparin 5,000 UNIT/ML VIAL SQ SCH ×3 (05:20→20:01)
[2020-08-21 05:31] LABS: Hematocrit 26.5 % (37.5-50.1); Hemoglobin 8.5 g/dL (12.9-16.9); Mean Corpuscular HGB Conc 32.1 g/dL (31.6-35.5); Mean Corpuscular Hemoglobin 28.2 pg (28.0-33.3); Mean Platelet Volume 10.4 fL (9.4-12.4); Platelet Count 250 K/mcL (140-400); Red Blood Count 3.01 M/mcL (4.19-5.50); White Blood Count 8.2 K/mcL (4.3-11.1)
[2020-08-21 05:48] LABS: Calcium 9.1 mg/dL (8.6-10.3); Potassium 4.3 mEq/L (3.5-5.1)
[2020-08-21] MEDS: Isosorbide MONOnitrate (24 HR) 30 MG TAB.ER.24H PO SCH (08:12)
[2020-08-21] MEDS: Aspirin 81 MG TAB.CHEW PO SCH (08:12)
[2020-08-21] MEDS: calcitrioL 0.25 MCG CAPSULE PO SCH (08:12)
[2020-08-21] MEDS: Cholecalciferol (D-3) 1,000 UNIT (25MCG) TABLET PO SCH (08:12)
[2020-08-21] MEDS: Metoprolol XL (24 HR) Succ 25 MG TAB.ER.24H PO SCH ×2 (08:12→20:01)
[2020-08-21] MEDS: hydrALAZINE 25 MG TABLET PO SCH ×2 (08:12→20:02)
[2020-08-21] MEDS: Famotidine 20 MG TABLET PO SCH (08:12)
[2020-08-21] MEDS: Insulin LISPRO 300 UNITS/3 ML VIAL SUBQ SCH ×4 (08:13→20:09)
[2020-08-21] MEDS: Acetaminophen 325 MG TABLET PO PRN (20:01)
[2020-08-21] MEDS: Loratadine 10 MG TABLET PO SCH (20:02)
[2020-08-21] MEDS ORDERED: Insulin DETEMIR 100 UNIT/ML X5UNITS SUBQ SCH (21:00)
[2020-08-22 05:05] LABS: Hematocrit 26.6 % (37.5-50.1); Hemoglobin 8.8 g/dL (12.9-16.9); Mean Corpuscular HGB Conc 33.1 g/dL (31.6-35.5); Mean Corpuscular Hemoglobin 29.2 pg (28.0-33.3); Mean Corpuscular Volume 88.4 fL (83.0-100.0); Mean Platelet Volume 10.6 fL (9.4-12.4); Platelet Count 251 K/mcL (140-400); Red Blood Count 3.01 M/mcL (4.19-5.50); Red Cell Distribution Width 13.1 % (11.5-14.5); White Blood Count 8.2 K/mcL (4.3-11.1)
[2020-08-22 05:24] LABS: Calcium 9.9 mg/dL (8.6-10.3); Potassium 4.6 mEq/L (3.5-5.1)
[2020-08-22] MEDS: *HR* Heparin 5,000 UNIT/ML VIAL SQ SCH ×2 (05:30→12:46)
[2020-08-22] MEDS: Acetaminophen 325 MG TABLET PO PRN (05:30)
[2020-08-22] MEDS ORDERED: 0.9 % Sodium Chloride 250 ML IVC PRN (07:30)
[2020-08-22] MEDS ORDERED: *HR* Heparin 10,000 UNIT/10 ML VIAL IV PRN (07:30)
[2020-08-22] MEDS ORDERED: 0.9 % Sodium Chloride 1,000 ML PRIME SCH (07:30)
[2020-08-22] MEDS: Aspirin 81 MG TAB.CHEW PO SCH (07:47)
[2020-08-22] MEDS: Famotidine 20 MG TABLET PO SCH (07:47)
[2020-08-22] MEDS: Cholecalciferol (D-3) 1,000 UNIT (25MCG) TABLET PO SCH (07:48)
[2020-08-22] MEDS: calcitrioL 0.25 MCG CAPSULE PO SCH (07:48)
[2020-08-22] MEDS: Insulin LISPRO 300 UNITS/3 ML VIAL SUBQ SCH ×2 (07:50→12:45)
[2020-08-22] MEDS: hydrALAZINE 25 MG TABLET PO SCH (12:25)
[2020-08-22] MEDS: Isosorbide MONOnitrate (24 HR) 30 MG TAB.ER.24H PO SCH (12:46)
[2020-08-22] MEDS: Metoprolol XL (24 HR) Succ 25 MG TAB.ER.24H PO SCH (12:46)
[2020-08-22 16:05] VITALS: BP 107/72
== END 2020-08-22 16:35 | DRG 720 ==
LOC: CDU 22:04 → EMEROOARM 22:04 → SUATTDRO 08-02 01:49 → CDU 08-02 02:29 → 2NENU 08-02 22:55 → SUATTDRO 08-05 17:29 → 2ANU 08-17 15:20
PROVIDERS: ADMIT Student in an Organized Health Care Education/Training Program; ATTEND Internal Medicine